=== PATIENT | male | born 1955 | race Caucasian/White ===

== ENCOUNTER → 2020-12-04 11:11 | Outpatient (CLI) | payer MEDICARE, OTHER, SELFPAY ==
--- NOTE | 2020-12-04 | DI.MRI.S_ITS ---
PROCEDURE: MR PELIS WO/W CON INDICATIONS: RECTAL MASS TECHNIQUE: Coronal HASTE, sagittal T2 FSE, axial T1 FSE, axial and coronal nonbreath-hold T2 FSE. Axial dynamic VIBE during administration of contrast. Post-contrast axial and coronal VIBE/2-D FLASH with fat saturation from the iliac crests to the symphysis. Optional diffusion weighted imaging and ADC may be performed. COMPARISON: None. FINDINGS: Image quality: Excellent. Rectum: Morphology: Polypoid Clock face of tumor involvement: 4 o'clock (left posterolateral) Mucinous (high T2 signal): No Craniocaudal length: 3.3 cm Distance to anal verge: 9 cm Distance to top of sphincter complex/anorectal junction: 6.6 cm Relationship to anterior peritoneal reflection: Just below Tumor at or below puborectalis sling: No T staging: Depth of extramural invasion: None Extramural vascular invasion: None T3 tumors only: distance to mesorectal fascia (circumferential resection margin): N/A Pelvic organ involvement: Genitourinary: None. There is enlargement of the central zone of the prostate, compatible with benign prostatic hyperplasia, which impinges upon the bladder base. Pelvic sidewall (obturator internus, piriformis, ischiococcygeus muscles): None. Pelvic floor (pubococcygeus, iliococcygeus, puborectalis, levator plate): None. Sacrum: None. Vessels (internal and external iliac arteries and veins): None. Nerves (lumbosacral nerve roots): None. Regional lymph nodes (mesorectal, inguinal, iliac): A few normal appearing mesorectal lymph nodes are seen measuring up to 2 mm in short axis diameter. No significantly enlarged internal or external iliac lymphadenopathy is seen. There is no significant inguinal lymphadenopathy. Other bowel and peritoneum: No pathologic free pelvic fluid. More proximal colon and small bowel loops are normal in caliber. Bones: Marrow is normal in overall signal. IMPRESSION: 1. 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 No extension beyond the muscularis layer is seen. There is no significant pelvic lymphadenopathy. Imaging findings are compatible with a stage of T2 N0. 2. Benign prostatic hyperplasia. Dictated by: Rodney Dc M.D. on 12/04/2020 at 13:17 Approved by: Rodney Dc M.D. on 12/04/2020 at 13:40
== END ==
PROVIDERS: PCP Internal Medicine; Referring Provider Surgery; Visit Provider Surgery
DX: K62.89 Other specified diseases of anus and rectum (principal); N40.0 Benign prostatic hyperplasia without lower urinary tract symptoms
CPT/HCPCS: 72197; A9579

== ENCOUNTER → 2022-03-24 11:47 | Outpatient (CLI) | payer MEDICARE, OTHER, SELFPAY ==
[2022-03-24 13:54] LABS: Prostate Specific Antigen 5.94 ng/mL (0.10-4.00)
== END ==
PROVIDERS: PCP Internal Medicine; Referring Provider Urology; Visit Provider Urology
DX: N40.0 Benign prostatic hyperplasia without lower urinary tract symptoms (principal)
CPT/HCPCS: 36415; 84153

== ENCOUNTER → 2022-03-31 13:55 | Outpatient (CLI) | payer MEDICARE, OTHER, SELFPAY ==
[2022-04-01 06:01] LABS: PSA Free % 35.7 % (.)
== END ==
PROVIDERS: PCP Internal Medicine; Referring Provider Urology; Visit Provider Urology
DX: R97.20 Elevated prostate specific antigen [PSA] (principal)
CPT/HCPCS: 36415; 84153; 84154

== ENCOUNTER → 2022-07-16 10:05 | Outpatient (CLI) | payer MEDICARE, OTHER, SELFPAY ==
[2022-07-18 07:19] LABS: PSA Free % 39.3 % (.); PSA, Total 6.7 ng/mL (0.0-4.0)
== END ==
PROVIDERS: PCP Physician Assistant; Referring Provider Urology; Visit Provider Urology
DX: R97.20 Elevated prostate specific antigen [PSA] (principal)
CPT/HCPCS: 36415; 84153; 84154

== ENCOUNTER → 2023-01-13 11:36 | Outpatient (CLI) | payer MEDICARE, OTHER, SELFPAY ==
[2023-01-15 09:05] LABS: PSA Free % 40.2 % (.); PSA, Total 5.4 ng/mL (0.0-4.0)
== END ==
PROVIDERS: PCP Physician Assistant; Referring Provider Urology; Visit Provider Urology
DX: R97.20 Elevated prostate specific antigen [PSA] (principal)
CPT/HCPCS: 36415; 84153; 84154

== ENCOUNTER → 2023-07-10 13:36 | Outpatient (CLI) | payer MEDICARE, OTHER, SELFPAY ==
[2023-07-15 07:25] LABS: PSA Free % 40.9 % (.); PSA, Total 6.6 ng/mL (0.0-4.0)
== END ==
PROVIDERS: PCP Physician Assistant; Referring Provider Urology; Visit Provider Urology
DX: R97.20 Elevated prostate specific antigen [PSA] (principal)
CPT/HCPCS: 36415; 84153; 84154

== ENCOUNTER → 2024-01-13 13:23 | Outpatient (CLI) | payer MEDICARE, OTHER, SELFPAY ==
[2024-01-15 14:29] LABS: PSA Free % 40.3 % (.); PSA, Total 6.2 ng/mL (0.0-4.0)
== END ==
PROVIDERS: PCP Physician Assistant; Referring Provider Urology; Visit Provider Urology
DX: R97.20 Elevated prostate specific antigen [PSA] (principal)
CPT/HCPCS: 36415; 84153; 84154

== ENCOUNTER → 2024-07-12 09:56 | Outpatient (CLI) | payer MEDICARE, OTHER, SELFPAY ==
[2024-07-13 14:13] LABS: PSA Free % 37.1 % (.); PSA, Total 7.2 ng/mL (0.0-4.0)
== END ==
PROVIDERS: Referring Provider Urology; Visit Provider Urology
DX: R97.20 Elevated prostate specific antigen [PSA] (principal); N40.1 Benign prostatic hyperplasia with lower urinary tract symptoms; R35.0 Frequency of micturition; R33.9 Retention of urine, unspecified; R35.1 Nocturia; M62.89 Other specified disorders of muscle; R39.15 Urgency of urination
CPT/HCPCS: 36415; 84153; 84154

== ENCOUNTER → 2025-01-12 10:54 | Outpatient (CLI) | payer MEDICARE, OTHER, SELFPAY ==
[2025-01-13 07:11] LABS: PSA Free % 42.2 % (.); PSA, Total 6.9 ng/mL (0.0-4.0)
== END ==
PROVIDERS: Referring Provider Urology; Visit Provider Urology
DX: R97.20 Elevated prostate specific antigen [PSA] (principal)
CPT/HCPCS: 36415; 84153; 84154

== ENCOUNTER → 2025-07-12 11:49 | Outpatient (CLI) | payer MEDICARE, OTHER, SELFPAY ==
[2025-07-15 07:10] LABS: PSA, Total 10.4 ng/mL (0.0-4.0)
== END ==
PROVIDERS: Referring Provider Urology; Visit Provider Urology
DX: N40.1 Benign prostatic hyperplasia with lower urinary tract symptoms (principal); R35.0 Frequency of micturition
CPT/HCPCS: 36415; 84153; 84154